=== PATIENT | female | born 1950 | race Two or more races ===

== ENCOUNTER 2024-09-12 08:57 | Inpatient (IN) | payer MEDICARE, OTHER ==
[~2024-09-12] VITALS: Ht 162.6 cm; Wt 74.9 kg
--- NOTE | 2024-09-12 09:11 | ECG ---
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
--- NOTE | 2024-09-12 09:31 | ED.PDOC ---
GI ASSESSMENT HPI Comments 74 year old female presents to the ED with a chief complaint of abdominal pain onset last night. Patient states she began experiencing RUQ pain last night, radiating to RT upper back as well as nausea/vomiting. Patient was diagnosed with gallstones, did not have surgery. She states pain is worse than previously. PMHx gallstones. Denies fevers, chills, diarrhea, constipation, chest pain, shortness of breath, dizziness, dysuria, hematuria. No other symptoms or modifying factors present at this time. Chief Complaint: Abdominal Pain Time Seen by MD: 09:22 Primary Care Provider: WEST Reviewed Notes: Medications, Allergies Allergies: Coded Allergies: Penicillins (Unverified Allergy, Unknown, 09/13/14) Home Meds Active Scripts Nitrofurantoin Monohydrate Mac (Macrobid) 100 Mg Cap, 100 MG PO BID for 7 Days, #14 CAP Prov:ABIMBOLA ART MD 09/12/24 Information Source: Patient, Relative Mode of Arrival: Ambulatory Timing: Days Duration: Since onset Prehospital treatment: None Quality: Sharp Severity: Moderate Recent: None Recent Hx of: Other (gallstones ) Pain Location: RUQ Associated sign and symptoms: Nausea, Vomiting, Abdominal Pain Past Medical History PAST MEDICAL HISTORY: Gallstones, UTI'S Surgical History: Denies all surgeries INSPECTOR CRYSTAL History: No Pertinent INSPECTOR CRYSTAL History Social History Smoker: Non-Smoker Alcohol: Denies ETOH Use Drugs: Denies Drug Use Lives In: Home Constitutional: denies: chills, diaphoresis, fatigue, fever, malaise, sweats, weakness, others EENTM: denies: blurred vision, double vision, ear bleeding, ear discharge, ear drainage, ear pain, ear ringing, eye pain, eye redness, hearing loss, mouth serafin n, mouth swelling, nasal discharge, nose bleeding, nose congestion, nose pain, photophobia, tearing, throat pain, throat swelling, voice changes, others Respiratory: denies: cough, hemoptysis, orthopnea, SOB at rest, shortness of breath, SOB with excertion, stridor, wheezing, others Cardiovascular: denies: chest pain, dizzy spells, diaphoresis, Dyspnea on exertion, edema, irregular heart beat, left arm pain, lightheadedness, palpitations, PND, syncope, others Gastrointestinal: reports: abdominal pain (RUQ), nausea, vomiting; denies: abdomen distended, blood streaked bowels, constipated, diarrhea, dysphagia, difficulty swallowing, hematemesis, melena, poor appetite, poor fluid intake, rectal bleeding, rectal pain, others Genitourinary: denies: abnormal vagina bleeding, burning, dyspareunia, dysuria, flank pain, frequency, hematuria, incontinence, pain, , vagina discharge, urgency, others Neurological: denies: dizziness, fainting, headache, left sided numbness, left sided weakness, numbness, paresthesia, pre-existing deficit, right sided numbness, right sided weakness, seizure, speech problems, tingling, tremors, weakness, others Musculoskeletal: reports: back pain; denies: gout, joint pain, joint swelling, muscle pain, muscle stiffness, neck pain, others Integumetry: denies: bruises, change in color, change in hair/nails, dryness, laceration, lesions, lumps, rash, wounds, others Allergic/Immunocompromised: denies: Difficulty Healing, Frequent Infections, Hives, Itching, others Hematologic/Lymphatic: denies: anemia, blood clots, easy bleeding, easy bruising, swollen glands, others Endocrine: denies: excessive hunger, excessive sweating, excessive thirst, excessive urination, flushing, intolerance to cold, intolerance to heat, unexplained weight gain, unexplained weight loss, others Psychiatric: denies: anxiety, bipolar disorder, depression, hopeless, panic disorder, schizophrenia, sleepless, suicidal, others All Other Systems: Reviewed and Negative Physical Exam General Appearance: Moderate Distress, Normal HEENT: Normal ENT Inspection, Pharynx Normal, TMs Normal Neck: Full Range of Motion, Non-Tender, Normal, Normal Inspection Respiratory: Chest Non-Tender, Lungs Clear, No Accessory Muscle Use, No Respiratory Distress, Normal Breath Sounds Cardiovascular: No Edema, No JVD, No Murmur, No Gallop, Normal Peripheral Pulses, Regular Rate/Rhythm Breast Exam: Deferred Gastrointestinal: No Organomegaly, Non Tender, No Pulsatile Mass, Normal Bowel Sounds, Soft Genitalia: Deferred Pelvic: Deferred Rectal: Deferred Extremities: No calf tenderness, Normal capillary refill, Normal inspection, Normal range of motion, Non-tender, No pedal edema Musculoskeletal : Apperance: Normal Neurologic: Alert, platen press feeder II-XII nml as Tested, No Motor Deficits, Normal Affect, Normal Mood, No Sensory Deficits Cerebellar Function: Normal Reflexes: Normal Skin: Dry, Normal Color, Warm Peripheral Pulses: 3+ Radial (R), 3+ Radial (L) Lymphatic: No Adenopathy EKG EKG : Pulse Rate (adult): 98 Cardiac Rhythm: NSR Was a procedure done? Was a procedure done?: No GI differential Dx Differential Diagnosis: Constipation, Diverticular disease, Esophagitis, Gastritis/PUD, Gastroenteritis X-Ray, Labs, Meds, VS Vital Signs Date Time Temp Pulse Resp B/P (MAP) Pulse Ox O2 Delivery O2 Flow Rate FiO2 09/12/24 14:36 98.6 87 16 114/50 (71) 95 98.6 09/12/24 11:45 99.2 93 16 147/91 (109) 95 99.2 09/12/24 09:45 94 16 95 Room Air* 0 21 09/12/24 09:45 99.4 94 16 113/78 (90) 95 99.4 09/12/24 09:37 98 09/12/24 09:09 99.8 98 18 136/81 (99) 97 99.8 09/12/24 09:07 98 Lab Test 09/12/24 09:32 09/12/24 09:21 09/12/24 09:11 Range/Units White Blood Count 18.0 H 4.4-10.8 10^3/uL Red Blood Count 5.08 4.0-5.20 10^6/uL Hemoglobin 14.6 12.2-16.2 g/dL Hematocrit 45.1 36.0-46.0 % Mean Corpuscular Volume 88.9 80.0-100.0 fL Mean Corpuscular Hemoglobin 28.8 28.0-32.0 pg Mean Corpuscular Hemoglobin Concent 32.4 32.0-36.0 g/dL Red Cell Distribution Width 14.8 H 11.8-14.3 % Platelet Count 221 140-450 10^3/uL Mean Platelet Volume 9.4 6.9-10.8 fL Neutrophils (%) (Auto) 87.3 H 37.0-80.0 % Lymphocytes (%) (Auto) 6.3 L 10.0-50.0 % Monocytes (%) (Auto) 6.2 0.0-12.0 % Eosinophils (%) (Auto) 0.0 0.0-7.0 % Basophils (%) (Auto) 0.2 0.0-2.0 % Neutrophils # (Auto) 15.7 H 1.6-8.6 10 ^3/uL Lymphocytes # (Auto) 1.1 0.4-5.4 10 ^3/uL Monocytes # (Auto) 1.1 0-1.3 10 ^3/uL Eosinophils # (Auto) 0 0-0.8 10 ^3/uL Basophils # (Auto) 0 0-0.2 10 ^3/uL Nucleated Red Blood Cells 0.0 % Sodium Level 138 136-145 mmol/L Potassium Level 3.8 3.5-5.1 mmol/L Chloride Level 105 98-107 mmol/L Carbon Dioxide Level 26 20-31 mmol/L Anion Gap 7 5-15 Blood Urea Nitrogen 14 9-23 mg/dL Creatinine 0.88 0.550-1.02 mg/dL Glomerular Filtration Rate Calc 68 >90 mL/min BUN/Creatinine Ratio 15.9 10.0-20.0 Serum Glucose 124 H 74-106 mg/dL Calcium Level 9.6 8.7-10.4 mg/dL Urine Color Colorless Yellow Urine Clarity Turbid H Clear Urine pH 8.0 5.0-9.0 Urine Specific [place] 1.018 1.001-1.035 Urine Protein 1+ H Negative Urine Ketones Negative Negative Urine Blood Trace H Negative /uL Urine Nitrite Negative Negative Urine Bilirubin Negative Negative Urine Urobilinogen Normal Negative mg/dL Urine Leukocyte Esterase 2+ Negative /uL Urine RBC 13 0 - 4 /hpf Urine Microscopic WBC 282 H 0-5 /HPF Urine Squamous Epithelial Cells Few <5 /hpf Urine Bacteria None seen None Seen /hpf Urine Mucus Few None Seen Urine Glucose 4+ H Normal mg/dL POC Glucose 122 H 70-106 mg/dl Current Medications Medications (Trade) Dose Ordered Sig/Dagoberto Route Start Time Stop Time Status Last Admin Trimethoprim/ Sulfamethoxazole 10 ml/Dextrose 260 ml @ 130 mls/hr ONCE ONCE IV 09/12/24 12:30 09/12/24 14:29 DC 09/12/24 14:[address] [address] Ph: [phone] DIAGNOSTIC IMAGING Diagnostic Imaging Report : [id number] Signed PATIENT: ANANDA BUCHANAN ACCT: [id number] UNIT: [id number] : 1950 LOC: ER ROOM / BED: / AGE / SEX: 74 / F ADM STATUS: REG ER SERVICE 09 ORDERING PHYSICIAN: ABIMBOLA ART MD PROCEDURE(s): GBUS - GALLBLADDER REASON: gallstone ORDER NUMBER(s): [id number], ACCESSION NUMBER(s): [id number] EXAM: US Abdomen Limited, Gallbladder CLINICAL INDICATION: gallstone TECHNIQUE: Real-time ultrasound of the right upper quadrant with image documentation. COMPARISON: None FINDINGS: LIVER: Liver measures 13.8 cm. Fatty infiltration of the liver. GALLBLADDER: Cholelithiasis. Negative Blancas's sign was reported by the industrial ecology technician. COMMON BILE DUCT: CBD 0.4 1. No stones. No dilation. PANCREAS: Unremarkable as visualized. RIGHT KIDNEY: Right kidney measures up to 10.5 cm. 1.2 cm renal cysts on the right. OTHER FINDINGS: . 1.1 cm left renal cyst. Left kidney measures up to 10.0 cm. IMPRESSION: 1. Fatty infiltration of the liver. 2. Cholelithiasis without convincing evidence of acute cholecystitis. ATED BY: WILFREDO RAMIRES MD DICTATED DATE/TIME: 09/12/24 1024 SIGNED BY: WILFREDO RAMIRES MD SIGNED DATE/TIME: 09/12/24 1024 CC: Patient alert pain Complaining of upper abdominal pain. Ultrasound revealed gallstones. Vitals stable. Urinalysis shows UTI. WBC elevated. Hemoglobin within normal limits. No sign of sepsis. Heart rate within normal limits. Saturation pristine on room air. Respiratory rate within normal limits. Was given prescription of Macrobid antibiotic. [facility] Explained to the patient. She is comfortable. Pain-free. Was told to follow up with her primary care physician. Was told to come back if there is any problem. Time of 1ST Reevaluation: 09:52 Reevaluation 1ST: Improved Patient Education/Counseling: Diagnosis, Treatment, Prognosis Family Education/Counseling: Diagnosis, Treatment, Prognosis Additional Information The following tests were ordered, and results were reviewed by me: EKG, CBC, UA, US GALLBLADDER Additional Information was gathered from interviewing the following independent historians: daughter I reviewed and agreed with the following test results read by other providers: US GALLBLADDER I discussed treatment and results with medical personnel and: Patient, daughter Comprehensive systems review obtained and negative except for what is stated in the HPI. Departure 1 Departure Time of Disposition: 11:19 Impression: Primary Impression: Sepsis due to urinary tract infection Additional Impression: Gallbladder disease Disposition: ADMITTED INPATIENT Admit to: Med Surg Condition: Guarded e-Prescriptions Nitrofurantoin Monohydrate Mac (Macrobid) 100 Mg Cap 100 MG PO BID for 7 Days, #14 CAP Prov: ABIMBOLA ART MD 09/12/24 Critical Care Note Critical Care Time?: No Stability Stability form required: No Heart Score Heart Score: Heart Score Response (Comments) Value History Slightly Suspicious 0 EKG Normal 0 Age >65 2 Risk Factors 1 or 2 risk factors 1 Troponin Normal limit 0 Total 3 I personally scribed for ABIMBOLA ART MD ([email or web address]) on 09/12/24 at 09:31. Electronically submitted by Haven Cohen ([email or web address]). I personally scribed for ABIMBOLA ART MD (EM) on 09/12/24 at 09:37. Electronically submitted by Haven Cohen ([email or web address]). I personally scribed for ABIMBOLA ART MD ([email or web address]) on 09/12/24 at 09:44. Electronically submitted by Haven Cohen ([email or web address]). I personally scribed for ABIMBOLA ART MD (EM) on 09/12/24 at 10:58. Electronically submitted by Haven Cohen ([email or web address]). ABIMBOLA ART MD Sep 12, 2024 09:31
[2024-09-12 09:45] VITALS: PULSE 94; RESP 16; O2SAT 95
[2024-09-12 09:48] LABS: Urine Bacteria None Seen /hpf (None Seen)
[2024-09-12 10:00] LABS: Basophils # (auto) 0 10 ^3/uL (0-0.2); Basophils % (auto) 0.2 % (0.0-2.0); Eosinophils # (auto) 0 10 ^3/uL (0-0.8); Hematocrit 45.1 % (36.0-46.0); Hemoglobin 14.6 g/dL (12.2-16.2); Lymphocytes # (auto) 1.1 10 ^3/uL (0.4-5.4); Lymphocytes % (auto) 6.3 % (10.0-50.0); Mean Corpuscular Hemoglobin 28.8 pg (28.0-32.0); Mean Corpuscular Hgb Conc. 32.4 g/dL (32.0-36.0); Mean Corpuscular Volume 88.9 fL (80.0-100.0); Monocytes # (auto) 1.1 10 ^3/uL (0-1.3); Monocytes % (auto) 6.2 % (0.0-12.0); Neutrophils # (auto) 15.7 10 ^3/uL (1.6-8.6); Neutrophils % (auto) 87.3 % (37.0-80.0); Platelet Count (auto) 221 10^3/uL (140-450); Red Blood Cells 5.08 10^6/uL (4.0-5.20); Red Cell Distribution Width 14.8 % (11.8-14.3)
--- NOTE | 2024-09-12 10:26 | DVH ---
EXAM: US Abdomen Limited, Gallbladder CLINICAL INDICATION: gallstone TECHNIQUE: Real-time ultrasound of the right upper quadrant with image documentation. COMPARISON: None FINDINGS: LIVER: Liver measures 13.8 cm. Fatty infiltration of the liver. GALLBLADDER: Cholelithiasis. Negative Blancas's sign was reported by the automotive refinish technician. COMMON BILE DUCT: CBD 0.4 1. No stones. No dilation. PANCREAS: Unremarkable as visualized. RIGHT KIDNEY: Right kidney measures up to 10.5 cm. 1.2 cm renal cysts on the right. OTHER FINDINGS: . 1.1 cm left renal cyst. Left kidney measures up to 10.0 cm. IMPRESSION: 1. Fatty infiltration of the liver. 2. Cholelithiasis without convincing evidence of acute cholecystitis.
[2024-09-12 10:50] LABS: Urine Blood TRACE /uL (Negative); Urine Clarity Turbid (Clear); Urine Color Colorless (Yellow); Urine Mucus FEW (None Seen); Urine Protein, UAD 1+ (Negative); Urine Specific Gravity 1.018 (1.001-1.035); Urine Squamous Epithelial Cell FEW /hpf (<5); Urine Urobilinogen Normal (Negative); Urine WBC 282 /HPF (0-5)
[2024-09-12] MEDS ORDERED: NITR-87 PO (11:20)
--- NOTE | 2024-09-12 14:43 | DVHHP2 ---
History of Present Illness Reason for Visit: Right flank pain and right upper quadrant pain History of Present Illness 74-year-old female with a known history of dyslipidemia who initially presented to the hospital with right upper quadrant pain with radiation to the upper back social with nausea. Patient was found to have elevated white count with a possible UTI and symptomatic cholelithiasis. Patient was have known history of gallstones. Denies any fevers chills does complain of some dysuria. Cardiovascular: hyperipidemia Past Surgical History: None Smoke: No ALCOHOL: none Review of Systems Review of Systems Twelve review of system were negative except mentioned above. Allergies: Coded Allergies: Penicillins (Unverified Allergy, Unknown, 09/13/14) Exam Vital Signs Vital Signs Date Time Temp Pulse Resp B/P (MAP) Pulse Ox O2 Delivery O2 Flow Rate FiO2 09/12/24 14:36 98.6 87 16 114/50 (71) 95 98.6 09/12/24 09:45 Room Air* 0 21 Exam HEENT pupils are reactive Neck is supple CV is S1-S2 regular rate and rhythm Respiratory are clear GI posterior bowel sound Extremity no edema CHEMICALS DISTILLER no motor deficits Labs/Xrays Labs Test 09/12/24 09:32 09/12/24 09:21 09/12/24 09:11 Range/Units White Blood Count 18.0 H 4.4-10.8 10^3/uL Red Blood Count 5.08 4.0-5.20 10^6/uL Hemoglobin 14.6 12.2-16.2 g/dL Hematocrit 45.1 36.0-46.0 % Mean Corpuscular Volume 88.9 80.0-100.0 fL Mean Corpuscular Hemoglobin 28.8 28.0-32.0 pg Mean Corpuscular Hemoglobin Concent 32.4 32.0-36.0 g/dL Red Cell Distribution Width 14.8 H 11.8-14.3 % Platelet Count 221 140-450 10^3/uL Mean Platelet Volume 9.4 6.9-10.8 fL Neutrophils (%) (Auto) 87.3 H 37.0-80.0 % Lymphocytes (%) (Auto) 6.3 L 10.0-50.0 % Monocytes (%) (Auto) 6.2 0.0-12.0 % Eosinophils (%) (Auto) 0.0 0.0-7.0 % Basophils (%) (Auto) 0.2 0.0-2.0 % Neutrophils # (Auto) 15.7 H 1.6-8.6 10 ^3/uL Lymphocytes # (Auto) 1.1 0.4-5.4 10 ^3/uL Monocytes # (Auto) 1.1 0-1.3 10 ^3/uL Eosinophils # (Auto) 0 0-0.8 10 ^3/uL Basophils # (Auto) 0 0-0.2 10 ^3/uL Nucleated Red Blood Cells 0.0 % Urine Color Colorless Yellow Urine Clarity Turbid H Clear Urine pH 8.0 5.0-9.0 Urine Specific [place] 1.018 1.001-1.035 Urine Protein 1+ H Negative Urine Ketones Negative Negative Urine Blood Trace H Negative /uL Urine Nitrite Negative Negative Urine Bilirubin Negative Negative Urine Urobilinogen Normal Negative mg/dL Urine Leukocyte Esterase 2+ Negative /uL Urine RBC 13 0 - 4 /hpf Urine Microscopic WBC 282 H 0-5 /HPF Urine Squamous Epithelial Cells Few <5 /hpf Urine Bacteria None seen None Seen /hpf Urine Mucus Few None Seen Urine Glucose 4+ H Normal mg/dL POC Glucose 122 H 70-106 mg/dl Assessment/Plan Assessment/Plan 74-year-old female with a known history of dyslipidemia presented to the heart with a right upper quadrant pain and dysuria found to have 1. Sepsis secondary to UTI 2. UTI 3. Leukocytosis 4. Symptomatic cholelithiasis -IV fluids, IV antibiotics, surgical consultation. Plan discussed with: Patient Date of Service: Sep 12, 2024 Billing Provider: KEIRY LÓPZE MD Common Visit Codes: NOT BILLABLE KEIRY LÓPEZ MD Sep 12, 2024 14:43
[2024-09-12] MEDS: SULFAMETH-TRIMETH 80/16MG-ML 10 ML in D5W 5% 250 ML IV ONE (14:44)
[2024-09-12] MEDS ORDERED: ONDANSETRON HCL 4 MG/2 ML VIAL IV PRN (14:45)
[2024-09-12] MEDS ORDERED: MORPHINE SULFATE INJ 2 MG/ml SYRG IV PRN (14:45)
[2024-09-12] MEDS ORDERED: NITROGLYCERIN 0.4 MG SL TAB SL PRN (14:45)
[2024-09-12 15:18] LABS: Chloride 105 mmol/L (98-107); Potassium 3.8 mmol/L (3.5-5.1); Sodium 138 mmol/L (136-145)
[2024-09-12 15:19] LABS: Anion Gap 7 (5-15); Calcium 9.6 mg/dL (8.7-10.4); Carbon Dioxide 26 mmol/L (20-31)
[2024-09-12 15:24] LABS: BUN/Creatinine Ratio 15.9 (10.0-20.0); Blood Urea Nitrogen 14 mg/dL (9-23)
[2024-09-12 15:25] LABS: Glucose 124 mg/dL (74-106)
[2024-09-12] MEDS: levoFLOXacin 500MG 100 ML IV SCH (17:29)
[2024-09-12 18:04] VITALS: BP 126/67; PULSE 80; RESP 18; TEMP 98.6; O2SAT 96
[2024-09-12] MEDS: HYDROcodone-ACET 5/325MG TAB PO PRN (18:45)
[2024-09-12 19:25] LABS: Alanine Aminotransferase 17 U/L (7-40); Albumin 4.4 g/dL (3.2-4.8); Alkaline Phosphatase 80 U/L (46-116); Anion Gap 8 (5-15); Aspartate Aminotransferase 15 U/L (13-40); BUN/Creatinine Ratio 15.3 (10.0-20.0); Bilirubin, Total 0.6 mg/dL (0.2-1.0); Blood Urea Nitrogen 15 mg/dL (9-23); Calcium 9.3 mg/dL (8.7-10.4); Carbon Dioxide 26 mmol/L (20-31); Chloride 106 mmol/L (98-107); Potassium 3.6 mmol/L (3.5-5.1); Sodium 140 mmol/L (136-145); Total Protein 6.6 g/dL (5.7-8.2)
[2024-09-12 19:32] LABS: Glucose 123 mg/dL (74-106)
[2024-09-12 20:00] VITALS: PULSE 83; PULSE 98; RESP 14
[2024-09-12 21:00] VITALS: BP 106/43; PULSE 83; RESP 17; TEMP 99.5; O2SAT 93
[2024-09-13] VITALS (7 sets, daily range): BP systolic 109–138; BP diastolic 52–116; PULSE 76–98; RESP 18–22; TEMP 97.9–98.9; O2SAT 92–95
[2024-09-13 07:31] LABS: Basophils # (auto) 0 10 ^3/uL (0-0.2); Basophils % (auto) 0.2 % (0.0-2.0); Eosinophils # (auto) 0.1 10 ^3/uL (0-0.8); Eosinophils % (auto) 0.5 % (0.0-7.0); Hematocrit 40.4 % (36.0-46.0); Hemoglobin 13.4 g/dL (12.2-16.2); Lymphocytes # (auto) 2.5 10 ^3/uL (0.4-5.4); Lymphocytes % (auto) 16.9 % (10.0-50.0); Mean Corpuscular Hemoglobin 29.5 pg (28.0-32.0); Mean Corpuscular Hgb Conc. 33.2 g/dL (32.0-36.0); Mean Corpuscular Volume 88.7 fL (80.0-100.0); Monocytes # (auto) 1.4 10 ^3/uL (0-1.3); Monocytes % (auto) 9.9 % (0.0-12.0); Neutrophils # (auto) 10.6 10 ^3/uL (1.6-8.6); Neutrophils % (auto) 72.5 % (37.0-80.0); Nucleated Red Blood Cells % 0.1 %; Platelet Count (auto) 204 10^3/uL (140-450); Red Blood Cells 4.55 10^6/uL (4.0-5.20); Red Cell Distribution Width 14.7 % (11.8-14.3); White Blood Cell 14.6 10^3/uL (4.4-10.8)
[2024-09-13 07:52] LABS: Alanine Aminotransferase 17 U/L (7-40); Alkaline Phosphatase 90 U/L (46-116); Anion Gap 7 (5-15); Aspartate Aminotransferase 16 U/L (13-40); Blood Urea Nitrogen 17 mg/dL (9-23); Calcium 9.5 mg/dL (8.7-10.4); Carbon Dioxide 26 mmol/L (20-31); Glucose 90 mg/dL (74-106); Potassium 3.9 mmol/L (3.5-5.1); Sodium 140 mmol/L (136-145); Total Protein 6.3 g/dL (5.7-8.2)
[2024-09-13 07:53] LABS: Bilirubin, Total 0.7 mg/dL (0.2-1.0)
[2024-09-13 07:58] LABS: Chloride 107 mmol/L (98-107)
[2024-09-13] MEDS: ENOXAPARIN SOD 40 MG/0.4 ML SYRINGE SC SCH (09:10)
[2024-09-13] MEDS ORDERED: EMPA1TAB PO (12:51)
[2024-09-13] MEDS ORDERED: ATOR20TA50 PO (12:51)
--- NOTE | 2024-09-13 14:53 | DVHINCON2 ---
Date of service: Sep 13, 2024 Allergies: Coded Allergies: Penicillins (Unverified Allergy, Unknown, 09/13/14) Home Meds Active Scripts Nitrofurantoin Monohydrate Mac (Macrobid) 100 Mg Cap, 100 MG PO BID for 7 Days, #14 CAP Prov:ABIMBOLA ART MD 09/12/24 Reported Medications Atorvastatin Calcium (ATORVASTATIN CALCIUM) 20 Mg Tab, 1 TAB PO DAILY, #30 TAB 5 Refills 09/13/24 Empagliflozin (Jardiance) 10 Mg Tab, 10 MG PO DAILY, TAB 09/13/24 Current Medications Current Medications Medications (Trade) Dose Ordered Sig/Dagoberto Route PRN Reason Start Time Stop Time Status Last Admin Enoxaparin Sodium (Lovenox) 40 mg DAILY SC 09/13/24 10:00 09/13/24 09:10 Vital Signs Vital Signs Date Time Temp Pulse Resp B/P (MAP) Pulse Ox O2 Delivery O2 Flow Rate FiO2 09/13/24 09:30 97.9 85 19 116/62 (80) 95 97.9 09/13/24 08:00 Room Air* 0 21 Labs/Diagnostic Data Labs Test 09/13/24 06:19 09/12/24 09:21 09/12/24 09:11 Range/Units White Blood Count 14.6 H 4.4-10.8 10^3/uL Red Blood Count 4.55 4.0-5.20 10^6/uL Hemoglobin 13.4 12.2-16.2 g/dL Hematocrit 40.4 # 36.0-46.0 % Mean Corpuscular Volume 88.7 80.0-100.0 fL Mean Corpuscular Hemoglobin 29.5 28.0-32.0 pg Mean Corpuscular Hemoglobin Concent 33.2 32.0-36.0 g/dL Red Cell Distribution Width 14.7 H 11.8-14.3 % Platelet Count 204 140-450 10^3/uL Mean Platelet Volume 9.7 6.9-10.8 fL Neutrophils (%) (Auto) 72.5 37.0-80.0 % Lymphocytes (%) (Auto) 16.9 10.0-50.0 % Monocytes (%) (Auto) 9.9 0.0-12.0 % Eosinophils (%) (Auto) 0.5 0.0-7.0 % Basophils (%) (Auto) 0.2 0.0-2.0 % Neutrophils # (Auto) 10.6 H 1.6-8.6 10 ^3/uL Lymphocytes # (Auto) 2.5 0.4-5.4 10 ^3/uL Monocytes # (Auto) 1.4 H 0-1.3 10 ^3/uL Eosinophils # (Auto) 0.1 0-0.8 10 ^3/uL Basophils # (Auto) 0 0-0.2 10 ^3/uL Nucleated Red Blood Cells 0.1 % Sodium Level 140 136-145 mmol/L Potassium Level 3.9 3.5-5.1 mmol/L Chloride Level 107 98-107 mmol/L Carbon Dioxide Level 26 20-31 mmol/L Anion Gap 7 5-15 Blood Urea Nitrogen 17 9-23 mg/dL Creatinine 1.00 0.550-1.02 mg/dL Glomerular Filtration Rate Calc 58 >90 mL/min BUN/Creatinine Ratio 17.0 10.0-20.0 Serum Glucose 90 74-106 mg/dL Calcium Level 9.5 8.7-10.4 mg/dL Total Bilirubin 0.7 0.2-1.0 mg/dL Aspartate Amino Transferase (AST) 16 13-40 U/L Alanine Aminotransferase (ALT) 17 7-40 U/L Alkaline Phosphatase 90 46-116 U/L Total Protein 6.3 5.7-8.2 g/dL Albumin 4.0 3.2-4.8 g/dL Urine Color Colorless Yellow Urine Clarity Turbid H Clear Urine pH 8.0 5.0-9.0 Urine Specific [place] 1.018 1.001-1.035 Urine Protein 1+ H Negative Urine Ketones Negative Negative Urine Blood Trace H Negative /uL Urine Nitrite Negative Negative Urine Bilirubin Negative Negative Urine Urobilinogen Normal Negative mg/dL Urine Leukocyte Esterase 2+ Negative /uL Urine RBC 13 0 - 4 /hpf Urine Microscopic WBC 282 H 0-5 /HPF Urine Squamous Epithelial Cells Few <5 /hpf Urine Bacteria None seen None Seen /hpf Urine Mucus Few None Seen Urine Glucose 4+ H Normal mg/dL POC Glucose 122 H 70-106 mg/dl Microbiology Date/Time Source Procedure Growth Status 09/12/24 09:21 Voided Urine Urine Culture - Preliminary Resulted Assessment [id number] AC CHOLECYSTITIS LAP/OPEN CHOLECYSTECTOMY AM Plan discussed with: Patient, Other OLIVIER,YADIRA K MD Sep 13, 2024 14:53
--- NOTE | 2024-09-13 16:17 | DVHPN2 ---
Subjective Patient denies any right upper quadrant pain. Also stated dysuria has been resolved. 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 Medications Current Medications Medications Dose Ordered Sig/Dagoberto Route Start Time Stop Time Status Last Admin Dose Admin Acetaminophen/ Hydrocodone Bitart 1 tab Q4HP PRN PO 09/12/24 14:45 09/12/24 18:45 1 TAB Ondansetron HCl 4 mg Q4HP PRN IV 09/12/24 14:45 Enoxaparin Sodium 40 mg DAILY SC 09/13/24 10:00 09/13/24 09:10 40 MG Acetaminophen 650 mg Q6HP PRN PO 09/12/24 14:45 Morphine Sulfate 2 mg Q4HPRN PRN IV 09/12/24 14:45 Nitroglycerin 0.4 mg Q5MINP PRN SL 09/12/24 14:45 Morphine Sulfate 2 mg Q30M PRN IV 09/12/24 14:45 Levofloxacin/ Dextrose 100 ml @ 100 mls/hr DAILY IV 09/12/24 14:45 09/13/24 09:10 100 MLS/HR Laboratory Results Laboratory Tests 09/13/24 06:19 Chemistry Test 09/12/24 18:27 09/13/24 06:19 Albumin 4.4 g/dL (3.2-4.8) 4.0 g/dL (3.2-4.8) Calcium Level 9.3 mg/dL (8.7-10.4) 9.5 mg/dL (8.7-10.4) Total Protein 6.6 g/dL (5.7-8.2) 6.3 g/dL (5.7-8.2) LFT Test 09/12/24 18:27 09/13/24 06:19 Alanine Aminotransferase (ALT) 17 U/L (7-40) 17 U/L (7-40) Alkaline Phosphatase 80 U/L (46-116) 90 U/L (46-116) Aspartate Amino Transferase (AST) 15 U/L (13-40) 16 U/L (13-40) Total Bilirubin 0.6 mg/dL (0.2-1.0) 0.7 mg/dL (0.2-1.0) Urinalysis Test 09/12/24 09:21 Urine Color Colorless (Yellow) Urine Clarity Turbid (Clear) H Urine pH 8.0 (5.0-9.0) Urine Specific [place] 1.018 (1.001-1.035) Urine Protein 1+ (Negative) H Urine Ketones Negative (Negative) Urine Blood Trace /uL (Negative) H Urine Nitrite Negative (Negative) Urine Bilirubin Negative (Negative) Urine Urobilinogen Normal mg/dL (Negative) Urine Leukocyte Esterase 2+ /uL (Negative) Urine RBC 13 /hpf (0 - 4) Urine Microscopic WBC 282 /HPF (0-5) H Urine Squamous Epithelial Cells Few /hpf (<5) Urine Bacteria None seen /hpf (None Seen) Urine Mucus Few (None Seen) Urine Glucose 4+ mg/dL (Normal) H Microbiology Microbiology Date/Time Source Procedure Growth Status 09/12/24 09:21 Voided Urine Urine Culture - Preliminary Resulted Assessment/Plan Assessment/Plan 74-year-old female with a known history of dyslipidemia presented to the heart with a right upper quadrant pain and dysuria found to have 1. Sepsis secondary to UTI 2. UTI 3. Leukocytosis 4. Symptomatic cholelithiasis suspected acute cholecystitis -IV fluids, IV antibiotics, surgical consultation. -laparoscopic versus open cholecystectomy Plan discussed with: Patient, Daughter Date of Service: Sep 13, 2024 Billing Provider: KEIRY LÓPEZ MD Common Visit Codes: NOT BILLABLE KEIRY LÓPEZ MD Sep 13, 2024 16:17
--- NOTE | 2024-09-13 16:46 | DVHINCON2 ---
DATE OF CONSULTATION: 09/13/2024 HISTORY OF PRESENT ILLNESS: A 74 years old, coming in with right upper quadrant pain, some nausea, no vomiting, no constipation, diarrhea. No hematemesis, melena. No bleeding per rectum. PAST MEDICAL HISTORY: No hypertension. No diabetes. PAST SURGICAL HISTORY: Possible appendectomy. PHYSICAL EXAMINATION: VITAL SIGNS: Afebrile, stable signs. HEENT: With no evidence of pallor, cyanosis, or jaundice. NECK: Supple, nontender with no thyromegaly, lymphadenopathy. CHEST AND LUNGS: Clear. HEART: Within normal limits. ABDOMEN: Soft, tender in the right upper quadrant. Minimal rebound. EXTREMITIES: Unremarkable. NEUROLOGIC: Intact. CLINICAL IMPRESSION: Rule out acute cholecystitis. PLAN: Will be to consider laparoscopic possible open cholecystectomy. Benefits, risks discussed and a consent obtained. MD LAURY King/MART TID: [id number] RECEIPT: [id number] cc: Kenney Castro MD
[2024-09-14] VITALS (7 sets, daily range): BP systolic 112–131; BP diastolic 41–53; PULSE 67–95; RESP 14–19; TEMP 98–98.6; O2SAT 94–98
--- NOTE | 2024-09-14 16:17 | DVHPN2 ---
Subjective Patient denies any right upper quadrant pain. Also stated dysuria has been resolved. Reviewed: Care Plan Changes from previous H/P or p: No Changes Objective Vitals Vital Signs Date Time Temp Pulse Resp B/P (MAP) Pulse Ox O2 Delivery O2 Flow Rate FiO2 09/14/24 13:00 98.0 67 17 114/49 (70) 95 98.0 09/14/24 08:00 Room Air* 0 21 Intake/Output Intake and Output 09/14/24 07:00 Intake Total 800 ml Balance 800 ml Intake Oral 700 ml IV Total 100 ml # Voids 7 Exam HEENT pupils reactive Neck is supple CV is S1-S2 regular rate and rhythm Respiratory bariatric clear GI positive bowel sound Extremity no pedal edema [employer] no motor deficit Medications Current Medications Medications Dose Ordered Sig/Dagoberto Route Start Time Stop Time Status Last Admin Dose Admin Acetaminophen/ Hydrocodone Bitart 1 tab Q4HP PRN PO 09/12/24 14:45 09/12/24 18:45 1 TAB Ondansetron HCl 4 mg Q4HP PRN IV 09/12/24 14:45 Enoxaparin Sodium 40 mg DAILY SC 09/13/24 10:00 09/13/24 09:10 40 MG Acetaminophen 650 mg Q6HP PRN PO 09/12/24 14:45 Morphine Sulfate 2 mg Q4HPRN PRN IV 09/12/24 14:45 Nitroglycerin 0.4 mg Q5MINP PRN SL 09/12/24 14:45 Morphine Sulfate 2 mg Q30M PRN IV 09/12/24 14:45 Levofloxacin/ Dextrose 100 ml @ 100 mls/hr DAILY IV 09/12/24 14:45 09/14/24 09:32 100 MLS/HR Laboratory Results Laboratory Tests 09/13/24 06:19 Urinalysis Test 09/12/24 09:21 Urine Color Colorless (Yellow) Urine Clarity Turbid (Clear) H Urine pH 8.0 (5.0-9.0) Urine Specific [place] 1.018 (1.001-1.035) Urine Protein 1+ (Negative) H Urine Ketones Negative (Negative) Urine Blood Trace /uL (Negative) H Urine Nitrite Negative (Negative) Urine Bilirubin Negative (Negative) Urine Urobilinogen Normal mg/dL (Negative) Urine Leukocyte Esterase 2+ /uL (Negative) Urine RBC 13 /hpf (0 - 4) Urine Microscopic WBC 282 /HPF (0-5) H Urine Squamous Epithelial Cells Few /hpf (<5) Urine Bacteria None seen /hpf (None Seen) Urine Mucus Few (None Seen) Urine Glucose 4+ mg/dL (Normal) H Microbiology Microbiology Date/Time Source Procedure Growth Status 09/12/24 09:21 Voided Urine Urine Culture - Final Escherichia coli Complete Assessment/Plan Assessment/Plan 74-year-old female with a known history of dyslipidemia presented to the heart with a right upper quadrant pain and dysuria found to have 1. Sepsis secondary to UTI 2. UTI 3. Leukocytosis 4. Symptomatic cholelithiasis suspected acute cholecystitis -IV fluids, IV antibiotics, surgical consultation. -laparoscopic versus open cholecystectomy Plan discussed with: Patient, Daughter Date of Service: Sep 14, 2024 Billing Provider: KEIRY LÓPEZ MD Common Visit Codes: NOT BILLABLE KEIRY LÓPEZ MD Sep 14, 2024 16:17
--- NOTE | 2024-09-14 19:43 | DVHPN2 ---
Progress Note Date Seen: Sep 14, 2024 Medical Necessity Reason Pt with a Central, PICC or Fol: No Objective vital signs Vital Sign Date Time Temp Pulse Resp B/P (MAP) Pulse Ox O2 Delivery O2 Flow Rate FiO2 09/14/24 17:00 98.1 74 18 112/41 (64) 97 98.1 09/14/24 08:00 Room Air* 0 21 Total Intake and Output 09/13/24 09/13/24 09/14/24 15:00 23:00 07:00 Intake Total 100 ml 700 ml Balance 100 ml 700 ml medications Current Medications Medications Dose Ordered Sig/Dagoberto Route Start Time Stop Time Status Last Admin Dose Admin Acetaminophen/ Hydrocodone Bitart 1 tab Q4HP PRN PO 09/12/24 14:45 09/12/24 18:45 1 TAB Ondansetron HCl 4 mg Q4HP PRN IV 09/12/24 14:45 Enoxaparin Sodium 40 mg DAILY SC 09/13/24 10:00 09/13/24 09:10 40 MG Acetaminophen 650 mg Q6HP PRN PO 09/12/24 14:45 Morphine Sulfate 2 mg Q4HPRN PRN IV 09/12/24 14:45 Nitroglycerin 0.4 mg Q5MINP PRN SL 09/12/24 14:45 Morphine Sulfate 2 mg Q30M PRN IV 09/12/24 14:45 Levofloxacin/ Dextrose 100 ml @ 100 mls/hr DAILY IV 09/12/24 14:45 09/14/24 09:32 100 MLS/HR laboratory and microbiology Laboratory Tests 09/13/24 06:19 Test 09/13/24 06:19 Range/Units Serum Glucose 90 74-106 mg/dL Microbiology Date/Time Source Procedure Growth Status 09/12/24 09:21 Voided Urine Urine Culture - Final Escherichia coli Complete Problem List/Assessment/Plan Problem List/Assessment/Plan AFEBRILE VSS ABD SOFT LESS PAIN ADVANCE DIET SILVIANO CONSIDER EMERGENT/ELECTIVE SURGERY INDICATED PT AND FAMILY TO DECIDE Plan discussed with: Other My Orders My Orders Orders - YADIRA AGUAYO MD Procedure Category Date Status Time Full Liq Diet DIET 09/15/24 Transmitted Dinner YADIRA AGUAYO MD Sep 14, 2024 19:43
[2024-09-15] VITALS (10 sets, daily range): BP systolic 114–135; BP diastolic 47–72; PULSE 61–86; RESP 15–19; TEMP 97.7–98.6; O2SAT 94–100
--- NOTE | 2024-09-15 11:11 | DVH ---
CHEST RADIOGRAPH Indication: Pain Technique: Single frontal view of the chest was obtained COMPARISON: None FINDINGS: Lines and Tubes: None Lungs: Mild fibrotic changes. Pleura: No effusion. No pneumothorax. Cardiomediastinal contours: Unremarkable Bones: Unremarkable IMPRESSION: No acute disease.
[2024-09-15] MEDS ORDERED: ceFAZolin 2 GM/D5W50ml 50 ML IV ONE (14:55)
[2024-09-15] MEDS ORDERED: DexAMETHasone SOD PHOS 10MG/1ML VIAL INJ ONE (16:31)
[2024-09-15] MEDS ORDERED: ONDANSETRON HCL 4 MG/2 ML VIAL ONE (16:31)
[2024-09-15] MEDS ORDERED: LIDOCAINE 2% (LOCAL ANESTH.) PF 5ml SDV ONE (16:31)
[2024-09-15] MEDS ORDERED: fentaNYL CITRATE 100 MCG/2 ML VL ONE ×2 (16:31→17:01)
[2024-09-15] MEDS ORDERED: PROPOFOL 10 MG/ML 20 ML IV ONE (16:31)
[2024-09-15] MEDS ORDERED: MIDAZOLAM HCL 2MG/2ML 2ml VIAL (1mg/ml) ONE (16:31)
[2024-09-15] MEDS ORDERED: ROCURONIUM 10MG/ML 10ML VIAL IV ONE (16:32)
[2024-09-15] MEDS ORDERED: HYDROmorphone HCL 2 MG/ML VL/or syr ONE (17:22)
[2024-09-15] MEDS ORDERED: GLYCOPYRROLATE 0.2 MG/ML 1ML VIAL ONE (17:23)
[2024-09-15] MEDS ORDERED: NEOSTIGMINE 1 MG/ML INJ (10mg/10ML VIAL) ONE (17:23)
--- NOTE | 2024-09-15 17:33 | DVHOP2 ---
Operative Report [id number] AC CHOLECYSTITIS LAP JONAS EBL 5 CC NO DRAINS NO COMPLICATIONS YADIRA AGUAYO MD Sep 15, 2024 17:33
--- NOTE | 2024-09-15 17:59 | DVHOP ---
DATE OF SURGERY: 09/15/2024 PREOPERATIVE DIAGNOSIS: Acute cholecystitis. POSTOPERATIVE DIAGNOSIS: Acute cholecystitis. PROCEDURE: Laparoscopic cholecystectomy. SURGEON: Bipin Dumont MD TRAY DRIER OPERATOR: None. ANESTHESIA: General. ESTIMATED BLOOD LOSS: Close to 5 mL. DRAINS: No drains were used. COMPLICATIONS: No complications were encountered. DESCRIPTION OF PROCEDURE: The patient was prepped and draped in the usual sterile fashion in the supine position and a supraumbilical incision was applied, was taken down to the fascia. The Veress needle was introduced and CO2 insufflation was started to a pressure of 15 mmHg. The needle was withdrawn, replaced by the 5 mm trocar and a telescope was introduced and the gallbladder was visualized, was found to be acutely inflamed, distended, a 12 mm port was applied close to the xiphisternum and two 5 mm ports were applied more laterally in subcostal line with instruments in place. The gallbladder was grasped at the fundus and infundibulum and the cystic duct and artery were , dissected out and clipped proximally and distally using the Hem-o-Chloé clips. With the patient in the head up and right upper lateral position, the gallbladder was then detached after the cystic duct and artery were between the clips, this was done using Harmonic device and the gallbladder was from the liver using the Harmonic device, and then once released it was placed in the EndoCatch bag and removed from the xiphisternal wound without any complication. Hemostasis was secured. Irrigation fluid was removed. The port sites were free from bleeding. EndoClose suture used for the fascial closure of the xiphisternal wound. All the ports were withdrawn after all the CO2 had been let out and the patient was placed in supine, the wounds were then brought together using 3-0 Monocryl suture in a subcuticular fashion. Surgical glue was applied. The patient tolerated the procedure well and was taken back to recovery room in stable condition. MD LAURY King/MART TID: [id number] RECEIPT: [id number] cc: Kenney Castro MD
[2024-09-15] MEDS: HYDROmorphone HCL 2 MG/ML VL/or syr ONE (18:00)
[2024-09-15] MEDS ORDERED: ACETAMINOPHEN IV 100 ML IV ONE (18:14)
[2024-09-15] MEDS: ACETAMINOPHEN IV 1000 MG/100ML (10MG/ML) IV ONE (18:20)
[2024-09-15] MEDS ORDERED: HYDROmorphone HCL 2 MG/ML VL/or syr IV PRN ×2 (18:30)
[2024-09-15] MEDS: BUPIVACAINE HCL 0.25% P/F 10 ML VIAL ONE (19:49)
[2024-09-15] MEDS: MORPHINE SULFATE INJ 2 MG/ml SYRG IV PRN (22:54)
[2024-09-16] VITALS (7 sets, daily range): BP systolic 103–153; BP diastolic 43–78; PULSE 65–85; RESP 16–20; TEMP 36.7; O2SAT 95–100
[2024-09-16 06:10] LABS: Basophils # (auto) 0 10 ^3/uL (0-0.2); Basophils % (auto) 0.3 % (0.0-2.0); Eosinophils # (auto) 0 10 ^3/uL (0-0.8); Hematocrit 44.1 % (36.0-46.0); Hemoglobin 14.4 g/dL (12.2-16.2); Lymphocytes # (auto) 1.4 10 ^3/uL (0.4-5.4); Lymphocytes % (auto) 17.3 % (10.0-50.0); Mean Corpuscular Hemoglobin 29.2 pg (28.0-32.0); Mean Corpuscular Hgb Conc. 32.7 g/dL (32.0-36.0); Mean Corpuscular Volume 89.1 fL (80.0-100.0); Monocytes # (auto) 0.4 10 ^3/uL (0-1.3); Monocytes % (auto) 4.7 % (0.0-12.0); Neutrophils # (auto) 6.4 10 ^3/uL (1.6-8.6); Neutrophils % (auto) 77.7 % (37.0-80.0); Nucleated Red Blood Cells % 0.1 %; Platelet Count (auto) 256 10^3/uL (140-450); Red Blood Cells 4.95 10^6/uL (4.0-5.20); Red Cell Distribution Width 14.5 % (11.8-14.3); White Blood Cell 8.2 10^3/uL (4.4-10.8)
[2024-09-16 06:26] LABS: Alkaline Phosphatase 95 U/L (46-116); Anion Gap 10 (5-15); Aspartate Aminotransferase 39 U/L (13-40); BUN/Creatinine Ratio 15.2 (10.0-20.0); Blood Urea Nitrogen 12 mg/dL (9-23); Calcium 9.5 mg/dL (8.7-10.4); Carbon Dioxide 22 mmol/L (20-31); Chloride 105 mmol/L (98-107); Potassium 4.7 mmol/L (3.5-5.1); Sodium 137 mmol/L (136-145); Total Protein 6.6 g/dL (5.7-8.2)
[2024-09-16 06:27] LABS: Bilirubin, Total 0.4 mg/dL (0.2-1.0)
[2024-09-16 06:40] LABS: Alanine Aminotransferase 41 U/L (7-40); Glucose 130 mg/dL (74-106)
--- NOTE | 2024-09-16 10:16 | DVHPN2 ---
Progress Note Date Seen: Sep 16, 2024 Medical Necessity Reason Pt with a Central, PICC or Fol: No Objective vital signs Vital Sign Date Time Temp Pulse Resp B/P (MAP) Pulse Ox O2 Delivery O2 Flow Rate FiO2 09/16/24 09:00 97.9 73 16 136/67 (90) 98 97.9 09/15/24 20:00 Room Air* 0 21 Total Intake and Output 09/15/24 09/15/24 09/16/24 15:00 23:00 07:00 Intake Total 100 ml 0 ml 650 ml Balance 100 ml 0 ml 650 ml medications Current Medications Medications Dose Ordered Sig/Dagoberto Route Start Time Stop Time Status Last Admin Dose Admin Acetaminophen/ Hydrocodone Bitart 1 tab Q4HP PRN PO 09/12/24 14:45 09/16/24 02:58 1 TAB Ondansetron HCl 4 mg Q4HP PRN IV 09/12/24 14:45 Enoxaparin Sodium 40 mg DAILY SC 09/13/24 10:00 09/13/24 09:10 40 MG Acetaminophen 650 mg Q6HP PRN PO 09/12/24 14:45 Morphine Sulfate 2 mg Q4HPRN PRN IV 09/12/24 14:45 09/15/24 22:54 2 MG Nitroglycerin 0.4 mg Q5MINP PRN SL 09/12/24 14:45 Morphine Sulfate 2 mg Q30M PRN IV 09/12/24 14:45 Levofloxacin/ Dextrose 100 ml @ 100 mls/hr DAILY IV 09/12/24 14:45 09/15/24 09:41 100 MLS/HR laboratory and microbiology Laboratory Tests 09/16/24 05:34 Test 09/16/24 05:34 Range/Units Serum Glucose 130 H 74-106 mg/dL Microbiology Date/Time Source Procedure Growth Status 09/12/24 09:21 Voided Urine Urine Culture - Final Escherichia coli Complete Problem List/Assessment/Plan Problem List/Assessment/Plan AFEBRILE VSS ABD SOFT LESS PAIN ADVANCE DIET SILVIANO WOUNDS HEALING WELL LFT WNL NO COMPLICATIONS CLEARED FOR DISCHARGE INSTRUCTIONS RE DIET ACTIVITY F/UP GIVEN Plan discussed with: Patient My Orders My Orders Orders - YADIRA AGUAYO MD Procedure Category Date Status Time Clear Liq Diet DIET 09/15/24 Transmitted Dinner YADIRA AGUAYO MD Sep 16, 2024 10:16
[2024-09-16] MEDS: ACETAMINOPHEN 325 MG TAB PO PRN (10:57)
--- NOTE | 2024-09-16 16:12 | DVHDS2 ---
Discharge Summary Date of Admission Sep 12, 2024 at 14:38 Date of Discharge: Sep 16, 2024 Labs/Diagnostic Data: Laboratory Results Test 09/16/24 05:34 09/12/24 09:21 09/12/24 09:11 White Blood Count 8.2 10^3/uL (4.4-10.8) Red Blood Count 4.95 10^6/uL (4.0-5.20) Hemoglobin 14.4 g/dL (12.2-16.2) Hematocrit 44.1 % (36.0-46.0) Mean Corpuscular Volume 89.1 fL (80.0-100.0) Mean Corpuscular Hemoglobin 29.2 pg (28.0-32.0) Mean Corpuscular Hemoglobin Concent 32.7 g/dL (32.0-36.0) Red Cell Distribution Width 14.5 % (11.8-14.3) Platelet Count 256 10^3/uL (140-450) Mean Platelet Volume 8.6 fL (6.9-10.8) Neutrophils (%) (Auto) 77.7 % (37.0-80.0) Lymphocytes (%) (Auto) 17.3 % (10.0-50.0) Monocytes (%) (Auto) 4.7 % (0.0-12.0) Eosinophils (%) (Auto) 0.0 % (0.0-7.0) Basophils (%) (Auto) 0.3 % (0.0-2.0) Neutrophils # (Auto) 6.4 10 ^3/uL (1.6-8.6) Lymphocytes # (Auto) 1.4 10 ^3/uL (0.4-5.4) Monocytes # (Auto) 0.4 10 ^3/uL (0-1.3) Eosinophils # (Auto) 0 10 ^3/uL (0-0.8) Basophils # (Auto) 0 10 ^3/uL (0-0.2) Nucleated Red Blood Cells 0.1 % Sodium Level 137 mmol/L (136-145) Potassium Level 4.7 mmol/L (3.5-5.1) Chloride Level 105 mmol/L (98-107) Carbon Dioxide Level 22 mmol/L (20-31) Anion Gap 10 (5-15) Blood Urea Nitrogen 12 mg/dL (9-23) Creatinine 0.79 mg/dL (0.550-1.02) Glomerular Filtration Rate Calc 77 mL/min (>90) BUN/Creatinine Ratio 15.2 (10.0-20.0) Serum Glucose 130 mg/dL (74-106) Calcium Level 9.5 mg/dL (8.7-10.4) Total Bilirubin 0.4 mg/dL (0.2-1.0) Aspartate Amino Transferase (AST) 39 U/L (13-40) Alanine Aminotransferase (ALT) 41 U/L (7-40) Alkaline Phosphatase 95 U/L (46-116) Total Protein 6.6 g/dL (5.7-8.2) Albumin 4.0 g/dL (3.2-4.8) Urine Color Colorless (Yellow) Urine Clarity Turbid (Clear) Urine pH 8.0 (5.0-9.0) Urine Specific [place] 1.018 (1.001-1.035) Urine Protein 1+ (Negative) Urine Ketones Negative (Negative) Urine Blood Trace /uL (Negative) Urine Nitrite Negative (Negative) Urine Bilirubin Negative (Negative) Urine Urobilinogen Normal mg/dL (Negative) Urine Leukocyte Esterase 2+ /uL (Negative) Urine RBC 13 /hpf (0 - 4) Urine Microscopic WBC 282 /HPF (0-5) Urine Squamous Epithelial Cells Few /hpf (<5) Urine Bacteria None seen /hpf (None Seen) Urine Mucus Few (None Seen) Urine Glucose 4+ mg/dL (Normal) POC Glucose 122 mg/dl (70-106) Other Laboratory Tests 09/16/24 05:34 Brief Hx & Hospital Course: 74-year-old female with a known history of dyslipidemia presented to the heart with a right upper quadrant pain and dysuria found to have it was secondary to UTI and acute cholecystitis. Patient was underwent laparoscopic cholecystectomy. Postoperatively patient was did fairly well . Patient UTI was treated with the IV antibiotics for five days. Patient was currently asymptomatic and stable to be discharged. Condition at Discharge: Stable Final Diagnosis/Problems List 74-year-old female with a known history of dyslipidemia presented to the heart with a right upper quadrant pain and dysuria found to have 1. Sepsis secondary to UTI 2. UTI 3. Leukocytosis 4 acute cholecystitis status post laparoscopic cholecystectomy Discharge Disposition: Home SNF Discharge Will this Physician continue t: No Discharge Instruct/Medications Diet: Cardiac 2g Na,low cholest Activity: No Restrictions, As Tolerated Follow Up/Referral: Follow up with General surgery in one week Follow up with the PCP in one week Medications: As prescribed Discharge Statement: "Patient was advised to return to the ER or call 911 if any headaches, dizziness, shortness of breath, chest pain, abdominal pain, bleeding, fevers, or worsening of medical condition. Patient was counseled about treatment plan, medications, possible side effects, patientverbalized understanding. All questions were answered to the best of my ability. This discharge took greater then 30 minutes in planning, reviewing documentation, counseling the patient, and discussing with other team members." ASSESSMENT ASSESSMENT Assessment 74-year-old female with a known history of dyslipidemia presented to the heart with a right upper quadrant pain and dysuria found to have 1. Sepsis secondary to UTI 2. UTI 3. Leukocytosis 4 acute cholecystitis status post laparoscopic cholecystectomy Date of Service: Sep 16, 2024 Billing Provider: KEIRY LÓPEZ MD Common Visit Codes: NOT BILLABLE KEIRY LÓPEZ MD Sep 16, 2024 16:12
== END 2024-09-16 19:57 | disposition home or self-care (01) | DRG 854 ==
LOC: ER 08:57 → OVERFLOW 14:38 → TELE-EAST 18:08
PROVIDERS: ADMIT Internal Medicine; ATTEND Internal Medicine
PROC: 0FT44ZZ Resection of Gallbladder, Percutaneous Endoscopic Approach (ICD-10-PCS; principal; 2024-09-15 16:31)
DX: A41.9 Sepsis, unspecified organism (principal); K80.00 Calculus of gallbladder with acute cholecystitis without obstruction; N39.0 Urinary tract infection, site not specified; E78.5 Hyperlipidemia, unspecified; Z88.0 Allergy status to penicillin; Z79.84 Long term (current) use of oral hypoglycemic drugs; Z79.899 Other long term (current) drug therapy
CPT/HCPCS: 36415; 71045; 76705; 80048; 80053; 81001; 82962; 85025; 87086; 87088; 87186; 93005; 96365; G0378; J0131; J1100; J1956; J2003; J2250; J2405; J2704; J3490; J7060